=== PATIENT | female | born 1955 | race Caucasian/White ===

== ENCOUNTER 2020-01-21 08:56 | Emergency (ER) | payer OTHER ==
[~2020-01-21] VITALS: Ht 152.4 cm; Wt 45.5 kg
[2020-01-21 09:03] VITALS: BP 174/73; Ht 152.4 cm; Wt 45.5 kg
== END 2020-01-21 09:49 | disposition home or self-care (01) ==
LOC: ED 08:56
DX: H65.06 Acute serous otitis media, recurrent, bilateral (principal); H60.93 Unspecified otitis externa, bilateral; I10 Essential (primary) hypertension; M79.7 Fibromyalgia